=== PATIENT | female | born 1985 | race Caucasian/White ===

== ENCOUNTER 2016-08-16 15:28 | Emergency (ER) | payer OTHER ==
[2016-08-16 15:36] VITALS: TEMP 98.6; O2SAT 99
[2016-08-16] MEDS ORDERED: TDAP ADULT 0.5 ML INJ (BOOSTRIX) IM ONE (15:50)
[2016-08-16] MEDS ORDERED: LETS SOLN TOPICAL 1 EA SYR TP ONE (15:50)
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
[2016-08-16 17:29] VITALS: BP 102/66; PULSE 90; RESP 16
== END 2016-08-16 17:28 | disposition home or self-care (01) ==
PROC: 3E0234Z Introduction of Serum, Toxoid and Vaccine into Muscle, Percutaneous Approach (ICD-10-PCS; principal; 2016-08-16)
DX: S09.90XA Unspecified injury of head, initial encounter (principal); S50.312A Abrasion of left elbow, initial encounter; S80.211A Abrasion, right knee, initial encounter; Z23 Encounter for immunization; V11.4XXA Pedal cycle driver injured in collision with other pedal cycle in traffic accident, initial encounter; Y92.410 Unspecified street and highway as the place of occurrence of the external cause; Y99.8 Other external cause status; Y93.89 Activity, other specified